=== PATIENT | male | born 2000 | race African-American/Black ===

== ENCOUNTER 2020-05-09 19:01 | Emergency (ER) | payer OTHER | END 2020-05-09 23:56 | disposition left against medical advice (07) | LOC: CSHERS 19:01 | DX: Z53.21 Procedure and treatment not carried out due to patient leaving prior to being seen by health care provider (principal) ==

== ENCOUNTER 2020-05-21 16:54 | Emergency (ER) | payer OTHER, SELFPAY | END 2020-05-21 18:28 | disposition home or self-care (01) | LOC: CSHERS 16:54 | DX: B86 Scabies (principal) | CPT/HCPCS: 99282 ==